=== PATIENT | female | born 1935 | race Caucasian/White ===

== ENCOUNTER 2021-05-18 13:51 | Outpatient (CLI) | payer MEDICARE | END 2021-05-18 23:59 | disposition home or self-care (01) | LOC: LAB 13:51 | PROVIDERS: ATTEND Specialist | DX: Z01.812 Encounter for preprocedural laboratory examination (principal); Z20.822 Contact with and (suspected) exposure to COVID-19 | CPT/HCPCS: C9803; U0003 ==

== ENCOUNTER 2021-05-22 14:30 | Inpatient (IN) | payer MEDICARE, BC ==
[~2021-05-22] VITALS: Ht 152.4 cm; Wt 65.3 kg
[2021-05-22 20:00] VITALS: BP 140/68
--- NOTE | 2021-05-23 07:42 | NUR ---
WOUND CARE CONSULT: PT PRESENTS WITH HEALED SKIN TEARS TO RT ARM AND ELBOW, CRUSTED WOUND TO LEFT ELBOW AND REDNESS WITH SWELLING TO RT CHEEK, CHIN AND NECK AREA, ALL PRESENT ON ADMISSION. DEFER TO MD FOR RT CHEEK/CHIN/NECK. RECOMMENDATIONS MADE FOR LEFT ELBOW WOUND. DISCUSSED WITH NURSING STAFF. MD IN AGREEMENT WITH PLAN OF CARE.
[2021-05-23] MEDS ORDERED: CARB1TAB40 PO (07:53)
[2021-05-23] MEDS ORDERED: DILT180T9 PO (07:53)
[2021-05-23] MEDS ORDERED: IRBE300T19 PO (07:53)
[2021-05-23] MEDS ORDERED: ROSU10TA29 PO (07:53)
[2021-05-23] MEDS ORDERED: DULO60CA64 PO (07:53)
[2021-05-23] MEDS ORDERED: PANT40TA49 PO (07:53)
[2021-05-23] MEDS ORDERED: POLY17PO4 PO (07:53)
[2021-05-23] MEDS ORDERED: CALC-1143 PO (07:53)
[2021-05-23] MEDS ORDERED: POLY15DR40 EACH EAR (07:53)
[2021-05-23] MEDS ORDERED: CARB1TAB21 PO (07:53)
--- NOTE | 2021-05-23 07:53 | NUR ---
MS RN OPENING NOTES RECEIVED PATIENT AWAKE IN BED IN NO ACUTE SIGNS OF DISTRESS. A/O X4. ABLE TO MAKE NEEDS KNOWN, DENIES PAIN OR ANY DISCOMFORTS AT THIS TIME. ON ROOM AIR, BREATHING EVENLY AND NON-LABORED. IV ACCESS ON LAC # 20G INTACT AND PATENT. SAFETY MEASURES IN PLACED: BED IN LOWEST LOCKED POSITION WIT SR UP X2. CALL LIGHT WITHIN REACH. WILL CONTINUE TO MONITOR PT ACCORDINGLY..
[2021-05-23 08:00] VITALS: BP 116/63
[2021-05-23 09:21] LABS: CALCIUM, SERUM 8.9 mg/dL (8.5-10.1); CREATININE 1.2 mg/dL (0.6-1.3); POTASSIUM 4.6 mmol/L (3.5-5.1)
--- NOTE | 2021-05-23 09:51 | NUR ---
RN NOTES PT STATED THAT DR FENTON CAME EARLY THIS MORNING BEFORE SHIFT STARTED. SHE STATED THAT HER SURGERY IS CANCELLED. DR FENTON'S PA DAVIDSON CONFIRMED THAT SURGERY WAS CANCELLED AND PT CAN EAT.
--- NOTE | 2021-05-23 09:55 | NUR ---
RN NOTES RECEIVED CALL FROM MANAGER MEDICAL DEVICE AND ASKED IF PT WILL HAVE CT FACIAL W/O CONTRAST OR WITH CONTRAST. NOTIFIED NERA, BIOMECHANICAL ENGINEER AND ORDERED W/O CONTRAST. WILL INFORM CT.
[2021-05-23] MEDS ORDERED: ACETAMINOPHEN 325 MG TABLET PO PRN (10:00)
[2021-05-23] MEDS ORDERED: MAG HYDROX/AL HYDROX/SIMETH 30 ML UDC PO PRN (10:00)
[2021-05-23] MEDS ORDERED: HYDROCODONE/APAP 5/325MG TABLET PO PRN (10:00)
[2021-05-23] MEDS ORDERED: MAGNESIUM HYDROXIDE 30 ML UDC PO PRN (10:00)
[2021-05-23] MEDS ORDERED: Z GUARD REMEDY 2 OZ OINT TP PRN (10:00)
[2021-05-23] MEDS ORDERED: ONDANSETRON HCL/PF 4 MG/2 ML VIAL IVP PRN (10:00)
[2021-05-23] MEDS ORDERED: POLYVINYL ALCOHOL 15 ML BOTTLE OP PRN (11:00)
--- NOTE | 2021-05-23 11:23 | NUR ---
RN NOTES PT PICKED-UP VIA WHEELCHAIR BY [facility] FOR CT OF FACE W//O CONTRAST.
[2021-05-23] MEDS: CARBIDOPA/LEVODOPA 25/100 MG 1 UDTAB PO SCH ×2 (12:15→16:52)
--- NOTE | 2021-05-23 17:56 | NUR ---
RN DISCHARGED NOTES PATIENT DISCHARGED HOME IN STABLE CONDITION. A/O X4. ABLE TO MAKE NEEDS KNOWN. V/S TAKEN, STABLE AND RECORDED. ALL BELONGINGS CHECKED, COUNTED AND SIGNED FORM. IV ACCESS ON LAC#20G REMOVED WITH NO ACTIVE BLEEDING NOTED, DRY PRESSURE DRESSING APPLIED TO SITE. NAME ARMBAND REMOVED. HEALTH TEACHINGS/ DISCHARGE INSTRUCTIONS GIVEN TO PT AND VERBALIZED UNDERSTANDING. PT LEFT UNIT AT 1745 VIA WHEELCHAIR ACCOMPANIED BY TK VERAS. NIELS IN THE CAR OUTSIDE OF THE LOBBY AND WILL TAKE PT'S HOME. CHARGE NURSE AWARE OF DISCHARGE.
[2021-05-23] MEDS ORDERED: CALCIUM CARBONATE (1250) 500 MG TABLET PO SCH (18:00)
[2021-05-23] MEDS ORDERED: POLYETHYLENE GLYCOL 3350 17 GM POWD.PACK PO SCH (18:00)
[2021-05-23] MEDS ORDERED: DILTIAZEM HCL CD 180 MG PO SCH (21:00)
[2021-05-23] MEDS ORDERED: CARBIDOPA/LEV CR 50/200 MG 1 UDTAB.SA PO SCH (22:00)
[2021-05-24] MEDS ORDERED: PANTOPRAZOLE 40 MG TABLET.DR PO SCH (07:30)
[2021-05-24] MEDS ORDERED: DILTIAZEM HCL CD 180 MG PO SCH (09:00)
[2021-05-24] MEDS ORDERED: ATORVASTATIN 10 MG TABLET PO SCH (09:00)
[2021-05-24] MEDS ORDERED: LOSARTAN POTASSIUM 50 MG TABLET PO SCH (09:00)
[2021-05-24] MEDS ORDERED: DULOXETINE HCL 30 MG CAPSULE.DR PO SCH (09:00)
== END 2021-05-23 17:52 | disposition home or self-care (01) | DRG 603 ==
LOC: MED 18:47 → EDSTATUS 05-23 14:30
PROVIDERS: ADMIT Internal Medicine; ATTEND Internal Medicine
DX: L03.211 Cellulitis of face (principal); E78.5 Hyperlipidemia, unspecified; E86.0 Dehydration; F32.9 Major depressive disorder, single episode, unspecified; G20 Parkinson's disease; I10 Essential (primary) hypertension; Z88.2 Allergy status to sulfonamides; I87.8 Other specified disorders of veins; M16.11 Unilateral primary osteoarthritis, right hip
CPT/HCPCS: 36415; 70486-TC; 80048-TC; 86140-TC; 87081-TC; 93307-TC; 93971-TC; A6253; G0378

== ENCOUNTER 2021-05-28 07:09 | Outpatient (CLI) | payer MEDICARE, BC ==
[~2021-05-28 07:09] MED LIST: CALC-1143 PO; CARB1TAB21 PO; CARB1TAB40 PO; DILT180T9 PO; DULO60CA64 PO; IRBE300T19 PO; PANT40TA49 PO; POLY15DR40 EACH EAR; POLY17PO4 PO; ROSU10TA29 PO
== END 2021-05-28 23:59 | disposition home or self-care (01) ==
LOC: LAB 07:09
PROVIDERS: ATTEND Specialist
DX: Z01.812 Encounter for preprocedural laboratory examination (principal); Z20.822 Contact with and (suspected) exposure to COVID-19
CPT/HCPCS: C9803; U0003

== ENCOUNTER 2021-06-01 08:20 | Inpatient (IN) | payer MEDICARE, BC ==
[~2021-06-01] VITALS: Ht 152.4 cm; Wt 61.7 kg
[2021-06-01] VITALS (8 sets, daily range): BP systolic 108–175; BP diastolic 51–75
[2021-06-01] MEDS ORDERED: ANESTHESIA TRAY IN PYXIS 1 EA TRAY MC ONE (08:36)
[2021-06-01] MEDS ORDERED: POLYMYXIN B SULFATE 0 UNITS ONE (08:41)
[2021-06-01] MEDS ORDERED: BUPIVACAINE 0.5 % PF 150 MG/30 ML VIAL ONE (08:41)
--- NOTE | 2021-06-01 08:50 | NUR ---
MS DIE ENGRAVING SUPERVISOR NOTES RECEIVED PATIENT FROM HOME VIA WHEELCHAIR, AWAKE AND A/O X4. FOR SURGERY IN AM- RIGHT TOTAL HIP ARTHROPLASTY. MADE COMFORTABLE ON BED. ASSESSMENT DONE. SKIN ASSESSMENT DONE, PHOTOS TAKEN. ALLERGIES NOTED. CONSENT FOR SURGERY, ANESTHESIA AND BLOOD TRANSFUSION HAVE BEEN SIGNED BY THE PATIENT. SURGERY CHECKLIST DONE. VITAL SIGNS CHECKED. ON NPO SINCE MIDNIGHT. SAFETY MEASURES IN PLACE. CALL LIGHT WITHIN REACH. BED ON LOWEST AND LOCKED POSITION, SIDE RAILS UP X2. WILL CONTINUE TO MONITOR.
[2021-06-01] MEDS ORDERED: TRANEXAMIC ACID 3,000 MG in SODIUM CHLORIDE IRRIG SOLUTION 70 ML IR ONE (10:30)
--- NOTE | 2021-06-01 10:30 | NUR ---
MS RN NOTES PATIENT WAS PICKED UP BY THE SURGERY PERSONNEL FOR RIGHT TOTAL HIP ARTHROPLASTY. PATIENT'S [place]EDD[place] RING WAS TAPED ON RING FINGER. SURGERY CHECKLIST DONE. CONSENT FORMS FOR SURGERY SIGNED.
[2021-06-01] MEDS ORDERED: FENTANYL PF 250MCG/5ML AMPUL ONE (11:09)
[2021-06-01] MEDS ORDERED: ROCURONIUM BROMIDE 50 MG/5 ML ONE (11:09)
[2021-06-01] MEDS ORDERED: ONDANSETRON HCL/PF 4 MG/2 ML VIAL IV PRN (11:30)
[2021-06-01] MEDS ORDERED: MAG HYDROX/AL HYDROX/SIMETH 30 ML UDC PO PRN (11:30)
[2021-06-01] MEDS ORDERED: CLONIDINE HCL 0.1 MG TABLET PO PRN (11:30)
[2021-06-01] MEDS ORDERED: HYDROMORPHONE 1 MG/1 ML DISP.SYRIN IM/IV/SC PRN (11:30)
[2021-06-01] MEDS ORDERED: ALPRAZOLAM 0.25 MG TABLET PO PRN (11:30)
[2021-06-01] MEDS ORDERED: MENTHOL/CETYLPYRD (CEPACOL) 1 LOZ LOZENGE PO PRN (11:30)
[2021-06-01] MEDS ORDERED: BISACODYL SUPP (10 MG) 10 MG/SUPP.RECT SUPP.RECT RC PRN (14:00)
[2021-06-01] MEDS ORDERED: ACETAMINOPHEN 325 MG TABLET PO PRN (14:00)
[2021-06-01] MEDS ORDERED: DOCUSATE SODIUM 250 MG CAPSULE PO PRN (14:00)
[2021-06-01] MEDS ORDERED: SENNOSIDES 8.6 MG TABLET PO PRN (14:00)
--- NOTE | 2021-06-01 14:30 | NUR ---
MS RN NOTES RECEIVED PATIENT FROM OR ENDORSED BY MS LANCE. PATIENT IS AWAKE AND A/OX4. WITH ABDUCTION PILLOW. WITH LONG CATHETER DRAINING 125ML. WITH IV ACCESS AT RIGHT HAND G22 WITH IVF LR AT 100ML/HR. ON REGULAR DIET. MRSA SWAB DONE. WILL CONTINUE TO MONITOR.
[2021-06-01] MEDS: oxyCODONE IR immediate release 5 MG PO PRN (15:35)
[2021-06-01] MEDS: IV LR 1000 ML 1,000 ML IV PRN (15:42)
[2021-06-01] MEDS: DULOXETINE HCL 30 MG CAPSULE.DR PO SCH (17:08)
--- NOTE | 2021-06-01 18:43 | NUR ---
MS RN NOTES PATIENT ON BED RESTING AND A/O X4. ON O2 AT 2LPM VIA NASAL CANNULA TOLERATING WELL. NO SOB NOTED. NOT IN APPARENT DISTRESS. WITH ABDUCTION PILLOW. WITH LONG CATHETER DRAINING 125ML. WITH IV ACCESS AT RIGHT HAND G22 WITH IVF LR AT 100ML/HR. SAFETY MEASURES IN PLACE. CALL LIGHT WITHIN REACH. BED ON LOWEST AND LOCKED POSITION, SIDE RAILS UP X2. WILL ENDORSE TO NEXT SHIFT FOR FAUSTO.
--- NOTE | 2021-06-01 19:59 | NUR ---
MS RN OPENING NOTE PT A/OX4 ABLE TO MAKE NEEDS KNOWN; IN ROOM. TOLERATING R/A WELL WITH NO SOB. R HAND #22G LR @ 100ML/HR. DENIES PAIN OR DISCOMFORT AT THIS TIME. DRESSING TO R HIP KEPT C/D/I. ALL NEEDS MET. SAFETY MEASURES IN PLACE: BED IN LOWEST LOCKED POSITION; SIDE RAILS UPX2, CALL LIGHT WITHIN EASY REACH, BED ALARM ON. PATIENT IN STABLE CONDITION, WILL CONTINUE PLAN OF CARE.
[2021-06-01] MEDS: ANCEF 1 GM/50 ML D5W IV SCH (20:22)
[2021-06-01] MEDS: PANTOPRAZOLE 40 MG TABLET.DR PO SCH (22:02)
--- NOTE | 2021-06-01 22:35 | NUR ---
MS RN NOTE R HAND #22G DISLODGED. REINSERTED L HAND #22G; GOOD BLOOD RETURN; PATENT AND INTACT
[2021-06-01] MEDS: diphenhydrAMINE HCL 25 MG CAPSULE PO PRN (23:31)
--- NOTE | 2021-06-01 23:41 | NUR ---
MS RN NOTE PT NOTED WITH AGITATION AND DIFFICULTY SLEEPING. OFFERED BENADRYL BUT PT STRONGLY REFUSED "I WILL STAY UP ALL NIGHT IF I HAVE TO." WILL CONTINUE TO MONITOR PT FOR AGITATION.
--- NOTE | 2021-06-01 23:45 | NUR ---
MS RN NOTE UPDATED GODREE PT'S ON PT'S STATUS OF AGITATION AND CONFUSION. ERIC CHARGE NURSE AWARE
--- NOTE | 2021-06-02 03:31 | NUR ---
MS RN NOTE - ADMITTING ORDERS NOTIFIED ERIC CHARGE NURSE PT DOES NOT HAVE ADMITTING OR CODE STATUS ORDERS. CHARGE NURSE NOTIFIED JERICHO CHOWDHURY AT 0331 VIA TEXT. AWAITING ORDERS
[2021-06-02] MEDS ORDERED: ONDANSETRON HCL/PF 4 MG/2 ML VIAL IVP PRN (04:00)
[2021-06-02] MEDS ORDERED: SENNOSIDES 8.6 MG TABLET PO PRN (04:00)
[2021-06-02] MEDS ORDERED: DOCUSATE SODIUM 250 MG CAPSULE PO PRN (04:00)
[2021-06-02] MEDS: IV LR 1000 ML 1,000 ML IV PRN ×2 (04:40→19:26)
[2021-06-02] MEDS: ANCEF 1 GM/50 ML D5W IV SCH (04:41)
--- NOTE | 2021-06-02 06:04 | NUR ---
MS RN OPENING NOTE PT A/OX3 WITH SOME CONFUSION; ABLE TO MAKE NEEDS KNOWN; IN ROOM. TOLERATING R/A WELL WITH NO SOB. L HAND #22G LR @ 100ML/HR; PATENT AND INTACT. DENIES PAIN OR DISCOMFORT AT THIS TIME. DRESSING TO R HIP KEPT C/D/I. ALL NEEDS MET. SAFETY MEASURES IN PLACE: BED IN LOWEST LOCKED POSITION; SIDE RAILS UPX2, CALL LIGHT WITHIN EASY REACH, BED ALARM ON. PATIENT IN STABLE CONDITION, WILL ENDORSE PLAN OF CARE TO ONCOMING MORNING RN.
[2021-06-02 06:26] LABS: HEMOGLOBIN 10.1 g/dL (11.5-14.8)
[2021-06-02 06:29] LABS: BASOPHILS % (AUTO) 0.1 % (0.0-2.0); HEMATOCRIT 30 % (33-45); LYMPHOCYTES # (AUTO) 0.4 K/uL (0.8-4.8); LYMPHOCYTES % (AUTO) 3.2 % (20.0-44.0); MEAN CORPUSCULAR HGB CONC 33 g/dl (31.0-36.0); MEAN CORPUSCULAR VOLUME 91 fL (82-100); MONOCYTES # (AUTO) 0.5 K/uL (0.1-1.30); MONOCYTES % (AUTO) 3.7 % (2.0-12.0); NEUTROPHILS # (AUTO) 12.6 K/uL (1.8-8.9); PLATELET COUNT (AUTO) 307 K/uL (150-450); RED BLOOD CELL COUNT(AUTO) 3.31 MIL/uL (4.0-5.2); WHITE BLOOD COUNT (AUTO) 13.5 K/uL (4.3-11.0)
[2021-06-02 06:59] LABS: BILIRUBIN,TOTAL 0.3 mg/dL (0.2-1.0); CALCIUM, SERUM 8.2 mg/dL (8.5-10.1); CREATININE 1.1 mg/dL (0.6-1.3); MAGNESIUM 2.5 mg/dL (1.8-2.4); PHOSPHORUS 3.6 mg/dL (2.5-4.9); POTASSIUM 4.9 mmol/L (3.5-5.1); TOTAL PROTEIN, SERUM 6.2 g/dL (6.4-8.2)
[2021-06-02 07:26] LABS: THYROID STIMULATING HORMONE 0.263 uIU/mL (0.358-3.74)
--- NOTE | 2021-06-02 07:30 | NUR ---
MS RN OPENING NOTES RECEIVED PATIENT ON BED, RESTING AND A/O X4. ON O2 AT 2LPM VIA NASAL CANNULA- ON AND OFF. NO SOB NOTED. NOT IN DISTRESS. WITH NO COMPLAINTS OF PAIN AT THIS TIME. WITH IV ACCESS AT RIGHT FOREARM G22, INTACT AND PATENT WITH IVF LR AT 50ML/HR. SAFETY MEASURES IN PLACE. CALL LIGHT WITHIN REACH. BED ON LOWEST AND LOCKED POSITION, SIDE RAILS UP X2. WILL CONTINUE TO MONITOR.
[2021-06-02 08:00] VITALS: BP 165/80
[2021-06-02] MEDS: ASPIRIN 325 MG TABLET PO SCH (09:37)
[2021-06-02] MEDS: DULOXETINE HCL 30 MG CAPSULE.DR PO SCH ×2 (09:37→17:31)
[2021-06-02] MEDS: DOCUSATE SODIUM 100 MG CAPSULE PO SCH ×2 (09:37→17:31)
[2021-06-02] MEDS ORDERED: POLYVINYL ALCOHOL 15 ML BOTTLE EACHEYE PRN (10:00)
[2021-06-02] MEDS: DILTIAZEM HCL CD 180 MG PO SCH (10:29)
[2021-06-02] MEDS: LOSARTAN POTASSIUM 50 MG TABLET PO SCH (10:29)
[2021-06-02] MEDS: CARBIDOPA/LEVODOPA 25/100 MG 1 UDTAB PO SCH ×3 (13:35→20:28)
[2021-06-02 16:07] VITALS: BP 145/59
[2021-06-02] MEDS: CALCIUM CARBONATE 500 MG TAB.CHEW PO SCH (19:06)
[2021-06-02] MEDS: POLYETHYLENE GLYCOL 3350 17 GM POWD.PACK PO SCH (19:06)
--- NOTE | 2021-06-02 19:36 | NUR ---
MS RN CLOSING NOTES PATIENT ON BED, RESTING AND A/O X4. ON O2 AT 2LPM VIA NASAL CANNULA- ON AND OFF. NO SOB NOTED. NOT IN DISTRESS. WITH NO COMPLAINTS OF PAIN AT THIS TIME. WITH IV ACCESS AT RIGHT HAND G20, INTACT AND PATENT WITH IVF LR AT 50ML/HR. SAFETY MEASURES IN PLACE. CALL LIGHT WITHIN REACH. BED ON LOWEST AND LOCKED POSITION, SIDE RAILS UP X2. WILL ENDORSE TO NEXT SHIFT FOR FAUSTO.
[2021-06-02 19:54] VITALS: BP 132/52
--- NOTE | 2021-06-02 20:51 | NUR ---
MS RN OPENING NOTES RECEIVED PT IN BED, WATCHING TV. AOx4. ABLE TO MAKE NEEDS KNOWN. ON RA AND TOLERATING WELL. NO SOB NOTED. NO S/SX OF RESPIRATORY DISTRESS NOTED. IV ACCESS IN RIGHT FA #22 RUNNING LR @ 50 ML/HR. NO COMPLAINTS OF PAIN AT THIS TIME. SAFETY PRECAUTIONS IN PLACE: BED IN LOWEST, LOCKED POSITION, BRAKES ON, SIDERAILS UPx2. TABLE AND CALL LIGHT WITHIN REACH. WILL CONTINUE TO MONITOR.
[2021-06-02] MEDS: CARBIDOPA/LEV CR 50/200 MG 1 UDTAB.SA PO SCH (22:09)
[2021-06-02] MEDS: PANTOPRAZOLE 40 MG TABLET.DR PO SCH (22:10)
[2021-06-02] MEDS: oxyCODONE IR immediate release 5 MG PO PRN (22:22)
--- NOTE | 2021-06-02 22:22 | NUR ---
ADMINISTERED OXYCODONE FOR PAIN, PER MD ORDER. VS WNL. WILL CONTINUE TO MONITOR.
--- NOTE | 2021-06-03 05:48 | NUR ---
PT REFUSED BLOOD DRAW. LAB PERSONNEL WILL ATTEMPT AT A LATER TIME.
--- NOTE | 2021-06-03 06:40 | NUR ---
MS RN CLOSING NOTES PT IN BED, SLEEPING, AWAKENS TO VERBAL STIMULI. AOx3-4. ABLE TO MAKE NEEDS KNOWN. ON RA AND TOLERATING WELL. NO SOB NOTED. NO S/SX OF RESPIRATORY DISTRESS NOTED. IV ACCESS IN RIGHT FA #22 RUNNING LR @ 50 ML/HR. TREATED PAIN ONCE DURING SHIFT. ALL NEEDS MET. PT KEPT CLEAN AND DRY. WOUND DRESSING ON RIGHT HIP IS DRY AND INTACT. SAFETY PRECAUTIONS IN PLACE: BED IN LOWEST, LOCKED POSITION, BRAKES ON, SIDERAILS UPx2. TABLE AND CALL LIGHT WITHIN REACH. WILL ENDORSE TO ONCOMING SHIFT.
--- NOTE | 2021-06-03 07:26 | NUR ---
MS RN OPENING NOTES RECEIVED PT IN BED RESTING. AWAKENS TO VERBAL STIMULI. PATIENT IS AOx4. ABLE TO MAKE NEEDS KNOWN. PATIENT IS BREATHING EVENLY AND NONLABORED ON RA AND TOLERATING WELL. NO SOB NOTED. NO S/SX OF RESPIRATORY DISTRESS NOTED. IV ACCESS IN RIGHT FA #22 RUNNING LR @ 50 ML/HR. NO COMPLAINTS OF PAIN AT THIS TIME. SAFETY PRECAUTIONS IN PLACE: BED IN LOWEST, LOCKED POSITION, BRAKES ON, SIDERAILS UPx2. TABLE AND CALL LIGHT WITHIN REACH. WILL CONTINUE TO MONITOR.
[2021-06-03] MEDS ORDERED: PANTOPRAZOLE 40 MG TABLET.DR PO SCH (07:30)
[2021-06-03 08:00] VITALS: BP 142/52
[2021-06-03] MEDS: ASPIRIN 325 MG TABLET PO SCH (08:18)
[2021-06-03] MEDS: CARBIDOPA/LEVODOPA 25/100 MG 1 UDTAB PO SCH ×4 (08:19→20:15)
[2021-06-03] MEDS: DOCUSATE SODIUM 100 MG CAPSULE PO SCH ×2 (08:19→16:08)
[2021-06-03] MEDS: ATORVASTATIN 10 MG TABLET PO SCH (08:19)
[2021-06-03] MEDS: LOSARTAN POTASSIUM 50 MG TABLET PO SCH (08:19)
[2021-06-03] MEDS: DULOXETINE HCL 30 MG CAPSULE.DR PO SCH ×2 (08:19→16:08)
[2021-06-03] MEDS: DILTIAZEM HCL CD 180 MG PO SCH (08:20)
[2021-06-03] MEDS ORDERED: LOSARTAN POTASSIUM 50 MG TABLET PO SCH (09:00)
[2021-06-03] MEDS ORDERED: DULOXETINE HCL 30 MG CAPSULE.DR PO SCH (09:00)
[2021-06-03 09:09] LABS: BASOPHILS % (AUTO) 0.1 % (0.0-2.0); HEMATOCRIT 29 % (33-45); HEMOGLOBIN 9.5 g/dL (11.5-14.8); LYMPHOCYTES # (AUTO) 0.9 K/uL (0.8-4.8); LYMPHOCYTES % (AUTO) 7.2 % (20.0-44.0); MEAN CORPUSCULAR HGB CONC 33 g/dl (31.0-36.0); MEAN CORPUSCULAR VOLUME 92 fL (82-100); MONOCYTES # (AUTO) 0.8 K/uL (0.1-1.30); NEUTROPHILS # (AUTO) 10.1 K/uL (1.8-8.9); NEUTROPHILS % (AUTO) 84.7 % (43.0-81.0); PLATELET COUNT (AUTO) 284 K/uL (150-450); RED BLOOD CELL COUNT(AUTO) 3.13 MIL/uL (4.0-5.2); WHITE BLOOD COUNT (AUTO) 11.9 K/uL (4.3-11.0)
[2021-06-03 09:52] LABS: CALCIUM, SERUM 8.3 mg/dL (8.5-10.1); CREATININE 1.2 mg/dL (0.6-1.3); POTASSIUM 3.9 mmol/L (3.5-5.1)
[2021-06-03 16:00] VITALS: BP 143/57
[2021-06-03] MEDS: CALCIUM CARBONATE 500 MG TAB.CHEW PO SCH (17:09)
[2021-06-03] MEDS: POLYETHYLENE GLYCOL 3350 17 GM POWD.PACK PO SCH (17:09)
--- NOTE | 2021-06-03 18:18 | NUR ---
MS RN CLOSING NOTES PT IN BED RESTING. AWAKENS TO VERBAL STIMULI. PATIENT IS AOx4. ABLE TO MAKE NEEDS KNOWN. PATIENT IS BREATHING EVENLY AND NONLABORED ON RA AND TOLERATING WELL. NO SOB NOTED. NO S/SX OF RESPIRATORY DISTRESS NOTED. IV ACCESS IN RIGHT FA #22 PATENT AND INTACT. ALL MEDICATIONS GIVEN ORDERED NO COMPLAINTS OF PAIN AT THIS TIME. SAFETY PRECAUTIONS IN PLACE: BED IN LOWEST, LOCKED POSITION, BRAKES ON, SIDERAILS UPx2. TABLE AND CALL LIGHT WITHIN REACH. WILL
--- NOTE | 2021-06-03 19:40 | NUR ---
MS RN OPENING NOTES RECEIVED PT IN BED, WATCHING TV. AOx3-4. ABLE TO MAKE NEEDS KNOWN. ON RA AND TOLERATING WELL. NO SOB NOTED. NO S/SX OF RESPIRATORY DISTRESS NOTED. IV ACCESS IN RIGHT FA #22 RUNNING LR @ 50 ML/HR. NO COMPLAINTS OF PAIN AT THIS TIME. SAFETY PRECAUTIONS IN PLACE: BED IN LOWEST, LOCKED POSITION, BRAKES ON, SIDERAILS UPx2. TABLE AND CALL LIGHT WITHIN REACH. WILL CONTINUE TO MONITOR. Addendum: 06/04/21 at 0644 by JAMES VALLE RN IV ACCESS IN R FA#[id number]. IV IS INTACT, PATENT AND FLUSHING WELL.
[2021-06-03 20:31] VITALS: BP 133/58
[2021-06-03] MEDS: PANTOPRAZOLE 40 MG TABLET.DR PO SCH (21:25)
[2021-06-03] MEDS: CARBIDOPA/LEV CR 50/200 MG 1 UDTAB.SA PO SCH (21:26)
--- NOTE | 2021-06-04 06:43 | NUR ---
MS RN CLOSING NOTES PT IN BED, ASLEEP, AWAKENS TO VERBAL STIMULI. AOx3-4. ABLE TO MAKE NEEDS KNOWN. ON RA AND TOLERATING WELL. NO SOB NOTED. NO S/SX OF RESPIRATORY DISTRESS NOTED. IV ACCESS IN RIGHT FA #22 RUNNING LR @ 50 ML/HR. NO COMPLAINTS OF PAIN THROUGHOUT SHIFT. ALL NEEDS MET. PT KEPT CLEAN AND DRY. SAFETY PRECAUTIONS IN PLACE: BED IN LOWEST, LOCKED POSITION, BRAKES ON, SIDERAILS UPx2. TABLE AND CALL LIGHT WITHIN REACH. WILL ENDORSE TO ONCOMING SHIFT. Addendum: 06/04/21 at 0644 by JAMES VALLE RN IV ACCESS IN R FA#[id number]. IV IS INTACT, PATENT AND FLUSHING WELL.
--- NOTE | 2021-06-04 07:30 | NUR ---
MS RN OPENING NOTE RECEIVED PT AWAKE IN BED. A/O X3-4. PT IS STABLE ON ROOM AIR, TOLERATING WELL. NO SOB OR S/S OF RESPIRATORY DISTRESS NOTED. PT HAS NO C/O PAIN OR DISCOMFORT AT THIS TIME. IV ACCESS IN RFA #22 SALINE-LOCKED, INTACT AND PATENT. LONG CATH IN PLACE DRAINING CLEAR, YELLOW URINE. SAFETY PRECAUTIONS MAINTAINED. BED IN LOWEST LOCKED POSITION, HOB ELEVATED, SIDE RAILS UP X2. CALL LIGHT AND TABLE WITHIN REACH. WILL CONTINUE WITH PLAN OF CARE.
[2021-06-04 08:00] VITALS: BP 141/61
[2021-06-04] MEDS: DULOXETINE HCL 30 MG CAPSULE.DR PO SCH ×2 (08:37→16:33)
[2021-06-04] MEDS: CARBIDOPA/LEVODOPA 25/100 MG 1 UDTAB PO SCH ×4 (08:38→20:17)
[2021-06-04] MEDS: ATORVASTATIN 10 MG TABLET PO SCH (08:38)
[2021-06-04] MEDS: ASPIRIN 325 MG TABLET PO SCH (08:38)
[2021-06-04] MEDS: DOCUSATE SODIUM 100 MG CAPSULE PO SCH ×2 (08:38→16:33)
[2021-06-04] MEDS: LOSARTAN POTASSIUM 50 MG TABLET PO SCH (08:38)
[2021-06-04] MEDS: DILTIAZEM HCL CD 180 MG PO SCH (08:39)
[2021-06-04 16:00] VITALS: BP 121/52
[2021-06-04] MEDS ORDERED: IV NS 0.9% 500 ML IV ONE (17:00)
[2021-06-04] MEDS: POLYETHYLENE GLYCOL 3350 17 GM POWD.PACK PO SCH (17:09)
[2021-06-04] MEDS: CALCIUM CARBONATE 500 MG TAB.CHEW PO SCH (17:09)
--- NOTE | 2021-06-04 18:18 | NUR ---
RN NOTE PT APPEARED VERY AGITATED, CONFUSED, AND ATTEMPTED TO GET OUT OF BED. PT STATED "I WANT TO REMOVE MY WEDGE PILLOW AND GET UP." INFORMED SYSTEM DEVELOPMENT MANAGER ANNIA AND RECEIVED ORDERS FOR ATIVAN 1MG IV ONE TIME, SEROQUEL 12.5MG PO BID, AND PSYCH CONSULT. ORDERS READ BACK, ENTERED, AND CARRIED OUT. WILL CONTINUE TO MONITOR PT CLOSELY.
--- NOTE | 2021-06-04 18:21 | NUR ---
MS RN CLOSING NOTE PT IS AWAKE IN BED. A/O X2 WITH PERIODS OF CONFUSION. PT IS STABLE ON ROOM AIR, TOLERATING WELL. NO SOB OR S/S OF RESPIRATORY DISTRESS NOTED. PT HAS NO C/O PAIN OR DISCOMFORT AT THIS TIME. IV ACCESS IN RFA #22 SALINE-LOCKED, INTACT AND PATENT. LONG CATH IN PLACE DRAINING CLEAR, YELLOW URINE. ALL NEEDS HAVE BEEN MET. SAFETY PRECAUTIONS MAINTAINED AT ALL TIMES. BED IN LOWEST LOCKED POSITION, HOB ELEVATED, SIDE RAILS UP X2. CALL LIGHT AND TABLE WITHIN REACH. WILL ENDORSE TO ONCOMING NURSE FOR FAUSTO.
[2021-06-04] MEDS ORDERED: LORAZEPAM INJ 2 MG/ML VIAL IV ONE (18:30)
--- NOTE | 2021-06-04 19:45 | NUR ---
MS RN OPENING NOTES Patient is sleeping but easy to wake. A&Ox2. RFA #22G patent and flushed. Weight bearing as tolerated to RLE. Brown catheter draining clear yellow urine. Patient denies pain at this time. No signs of distress. Will continue to monitor.
[2021-06-04 20:00] VITALS: BP 151/64
[2021-06-04] MEDS: PANTOPRAZOLE 40 MG TABLET.DR PO SCH (22:02)
[2021-06-04] MEDS: CARBIDOPA/LEV CR 50/200 MG 1 UDTAB.SA PO SCH (22:03)
[2021-06-05] MEDS: diphenhydrAMINE HCL 25 MG CAPSULE PO PRN (00:22)
--- NOTE | 2021-06-05 06:25 | NUR ---
Patient A&Ox1 at bedtime, ing behaviors. Thinks it is lunchtime and that later she has a special constitution party to go to with her family. Reoriented patient that she is in the hospital and it is nighttime. Accepted reality well. Had x2 BMs using bedpan after suppository was administered -WNL. In bed with abduction pillow. Denies pain at rest. No clinical indicators of pain at night./ 600cc output to abel cath- clear and yellow. All safety measures in place.
--- NOTE | 2021-06-05 07:39 | NUR ---
RN OPENING NOTES Patient seen comfortably lying in bed, no SOB, respirations even and unlabored, no apparent distress noted, denies any pain or discomfort at this time. Call light left within reach, safety precautions in place, brakes locked, side rails up X 2, will monitor closely for any changes.
[2021-06-05 08:00] VITALS: BP 192/67
[2021-06-05] MEDS ORDERED: QUETIAPINE FUMARATE 25 MG TABLET PO SCH (09:00)
[2021-06-05] MEDS: CARBIDOPA/LEVODOPA 25/100 MG 1 UDTAB PO SCH ×2 (10:13→13:03)
[2021-06-05] MEDS: DILTIAZEM HCL CD 180 MG PO SCH (10:13)
[2021-06-05] MEDS: DULOXETINE HCL 30 MG CAPSULE.DR PO SCH (10:13)
[2021-06-05] MEDS: ASPIRIN 325 MG TABLET PO SCH (10:14)
[2021-06-05] MEDS: LOSARTAN POTASSIUM 50 MG TABLET PO SCH (10:14)
[2021-06-05] MEDS: DOCUSATE SODIUM 100 MG CAPSULE PO SCH (10:14)
[2021-06-05] MEDS: ATORVASTATIN 10 MG TABLET PO SCH (10:14)
--- NOTE | 2021-06-05 15:40 | NUR ---
[facility], report given to Alia FREY [phone]. Patient comfortably lying in bed, no apparent distress noted, denies any pain or discomfort. Patient made aware of the situation, patient AO X 1-2, unable to sign for herself, 2 RNs signed all discharge paperworks, all belongings taken, inventory list signed by 2RNs. Health teaching provided, verbalized understanding and gratitude. Skin intact, warm to touch, no pallor or cyanosis noted. She has discolorations and scabs on upper and lower extremities, photos taken and filed in chart. Patient had a abel catheter s/t surgical procedure, draining clear yellowish urine, free from any sediments, no cloudiness, no hematuria, no unusual odor noted in urine, abel catheter removed prior to discharge. Patient able to void, after abel catheter removal, denies any pain or discomfort in the bladder area, no bladder distention. Peripheral IV removed and covered with dry dressing. Name wristband removed prior to discharge. Patient left unit at 1540, stable condition, surgical facial mask and exit care folder with paperworks handed to transportation.
[2021-06-05 15:52] VITALS: BP 126/50
== END 2021-06-05 15:45 | DRG 470 ==
LOC: DS 08:20 → MED 08:21
PROVIDERS: ADMIT Nurse Practitioner Acute Care
PROC: 0SR90JZ Replacement of Right Hip Joint with Synthetic Substitute, Open Approach (ICD-10-PCS; principal; 2021-06-01)
DX: M16.11 Unilateral primary osteoarthritis, right hip (principal); E87.1 Hypo-osmolality and hyponatremia; I10 Essential (primary) hypertension; G20 Parkinson's disease; D63.8 Anemia in other chronic diseases classified elsewhere; E78.5 Hyperlipidemia, unspecified; E86.1 Hypovolemia; D72.829 Elevated white blood cell count, unspecified; E03.9 Hypothyroidism, unspecified; F32.A Depression, unspecified; G47.00 Insomnia, unspecified; Z90.710 Acquired absence of both cervix and uterus; F41.9 Anxiety disorder, unspecified; K59.09 Other constipation; F03.90 Unspecified dementia, unspecified severity, without behavioral disturbance, psychotic disturbance, mood disturbance, and anxiety; Z88.9 Allergy status to unspecified drugs, medicaments and biological substances; M48.061 Spinal stenosis, lumbar region without neurogenic claudication; Z88.2 Allergy status to sulfonamides; Z91.81 History of falling
CPT/HCPCS: 36415; 73610-TC; 80048-TC; 80053-TC; 80061-TC; 83735-TC; 84100-TC; 84443-TC; 85025-TC; 85027-TC; 87081-TC; 88305-TC; 88311-TC; 97110-TC; 97112-TC; 97116-TC; 97530-TC; A4217; A6209; C1776; G0378; J0690; J1100; J1170; J2060; J2405; J2704; J3010; J3490; J7030; J7040; J7060; J7120; Q0163

== ENCOUNTER 2022-01-16 11:45 | Outpatient (CLI) | payer MEDICARE, BC ==
[2022-01-16] MEDS ORDERED: LIDOCAINE SOLN 4% 50 ML BOTTLE ONE (12:03)
== END 2022-01-16 23:59 | disposition home health service (06) ==
LOC: WOU 11:45
PROVIDERS: ATTEND Specialist
DX: S81.811D Laceration without foreign body, right lower leg, subsequent encounter (principal); S51.811D Laceration without foreign body of right forearm, subsequent encounter; W19.XXXD Unspecified fall, subsequent encounter; G20 Parkinson's disease; Z79.899 Other long term (current) drug therapy
CPT/HCPCS: 73090; 73562; A6209; G0463

== ENCOUNTER 2022-01-23 10:00 | Outpatient (CLI) | payer MEDICARE, BC ==
[~2022-01-23 10:00] MED LIST changes: +LIDOCAINE SOLN 4% 50 ML BOTTLE ONE
== END 2022-01-23 23:59 | disposition home health service (06) ==
LOC: WOU 10:00
PROVIDERS: ATTEND Specialist
DX: S81.811D Laceration without foreign body, right lower leg, subsequent encounter (principal); S51.811D Laceration without foreign body of right forearm, subsequent encounter; W19.XXXD Unspecified fall, subsequent encounter; G20 Parkinson's disease; I10 Essential (primary) hypertension; Z87.891 Personal history of nicotine dependence; Z79.899 Other long term (current) drug therapy
CPT/HCPCS: G0463

== ENCOUNTER 2022-01-30 09:40 | Outpatient (CLI) | payer MEDICARE, BC ==
[~2022-01-30 09:40] MED LIST changes: -LIDOCAINE SOLN 4% 50 ML BOTTLE ONE
[2022-01-30] MEDS ORDERED: LIDOCAINE SOLN 4% 50 ML BOTTLE ONE (09:57)
== END 2022-01-30 23:59 | disposition home or self-care (01) ==
LOC: WOU 09:40
PROVIDERS: ATTEND Specialist
DX: S81.811D Laceration without foreign body, right lower leg, subsequent encounter (principal); S51.811D Laceration without foreign body of right forearm, subsequent encounter; W19.XXXD Unspecified fall, subsequent encounter; G20 Parkinson's disease; Z79.899 Other long term (current) drug therapy; Z91.81 History of falling; I10 Essential (primary) hypertension; Z87.891 Personal history of nicotine dependence
CPT/HCPCS: G0463

== ENCOUNTER 2022-02-06 09:10 | Outpatient (CLI) | payer MEDICARE, BC | END 2022-02-06 23:59 | disposition home health service (06) | LOC: WOU 09:10 | PROVIDERS: ATTEND Specialist | DX: S81.811A Laceration without foreign body, right lower leg, initial encounter (principal); S51.811A Laceration without foreign body of right forearm, initial encounter; W19.XXXA Unspecified fall, initial encounter; Y92.89 Other specified places as the place of occurrence of the external cause; G20 Parkinson's disease; I10 Essential (primary) hypertension; Z79.899 Other long term (current) drug therapy; Z87.891 Personal history of nicotine dependence | CPT/HCPCS: 17250 ==

== ENCOUNTER 2022-02-13 13:15 | Outpatient (CLI) | payer MEDICARE, BC ==
[2022-02-13] MEDS ORDERED: LIDOCAINE SOLN 4% 50 ML BOTTLE ONE (13:26)
== END 2022-02-13 23:59 | disposition home health service (06) ==
LOC: WOU 13:15
PROVIDERS: ATTEND Specialist
DX: S81.811A Laceration without foreign body, right lower leg, initial encounter (principal); S51.811A Laceration without foreign body of right forearm, initial encounter; W19.XXXA Unspecified fall, initial encounter; Y92.89 Other specified places as the place of occurrence of the external cause; G20 Parkinson's disease; Z79.899 Other long term (current) drug therapy
CPT/HCPCS: 17250

== ENCOUNTER 2022-02-20 09:50 | Outpatient (CLI) | payer MEDICARE, BC ==
[~2022-02-20 09:50] MED LIST changes: +LIDOCAINE SOLN 4% 50 ML BOTTLE ONE
[2022-02-20] MEDS ORDERED: SILVER SULFADIAZINE CREAM 25 GM TUBE ONE (10:59)
[2022-02-20] MEDS ORDERED: HYDROCORTISONE 1% CREAM 28.35 GM TUBE TP ONE (11:00)
== END 2022-02-20 23:59 | disposition home health service (06) ==
LOC: WOU 09:50
PROVIDERS: ATTEND Specialist
DX: S81.811A Laceration without foreign body, right lower leg, initial encounter (principal); S51.811A Laceration without foreign body of right forearm, initial encounter; G20 Parkinson's disease; I10 Essential (primary) hypertension; R29.6 Repeated falls; Z79.899 Other long term (current) drug therapy
CPT/HCPCS: 17250 ×3; A6209

== ENCOUNTER 2022-02-27 09:45 | Outpatient (CLI) | payer MEDICARE, BC ==
[~2022-02-27 09:45] MED LIST changes: -LIDOCAINE SOLN 4% 50 ML BOTTLE ONE
[2022-02-27] MEDS ORDERED: LIDOCAINE 2% JEL 5 ML TUBE ONE (09:56)
[2022-02-27] MEDS ORDERED: UREA 10% -AHA 4% CREAM 57 GM TUBE ONE (10:08)
== END 2022-02-27 23:59 | disposition home health service (06) ==
LOC: WOU 09:45
PROVIDERS: ATTEND Specialist
DX: S81.811D Laceration without foreign body, right lower leg, subsequent encounter (principal); S51.811D Laceration without foreign body of right forearm, subsequent encounter; W19.XXXD Unspecified fall, subsequent encounter; G20 Parkinson's disease; R29.6 Repeated falls; Z79.899 Other long term (current) drug therapy
CPT/HCPCS: G0463

== ENCOUNTER 2022-03-06 09:50 | Outpatient (CLI) | payer MEDICARE, BC ==
[2022-03-06] MEDS ORDERED: LIDOCAINE SOLN 4% 50 ML BOTTLE ONE (09:52)
== END 2022-03-06 23:59 | disposition home health service (06) ==
LOC: WOU 09:50
PROVIDERS: ATTEND Specialist
DX: S81.811D Laceration without foreign body, right lower leg, subsequent encounter (principal); S51.811D Laceration without foreign body of right forearm, subsequent encounter; W19.XXXD Unspecified fall, subsequent encounter; S51.011A Laceration without foreign body of right elbow, initial encounter; W19.XXXA Unspecified fall, initial encounter; Z91.81 History of falling; Y92.89 Other specified places as the place of occurrence of the external cause; G20 Parkinson's disease; Z79.899 Other long term (current) drug therapy
CPT/HCPCS: G0463; A6209

== ENCOUNTER 2022-03-13 13:00 | Outpatient (CLI) | payer MEDICARE, BC ==
[2022-03-13] MEDS ORDERED: LIDOCAINE SOLN 4% 50 ML BOTTLE ONE (13:23)
[2022-03-13] MEDS ORDERED: UREA 10% -AHA 4% CREAM 57 GM TUBE ONE (14:04)
== END 2022-03-13 23:59 | disposition home health service (06) ==
LOC: WOU 13:00
PROVIDERS: ATTEND Specialist
DX: S81.011D Laceration without foreign body, right knee, subsequent encounter (principal); W19.XXXD Unspecified fall, subsequent encounter; Z91.81 History of falling; G20 Parkinson's disease; I10 Essential (primary) hypertension; Z79.899 Other long term (current) drug therapy
CPT/HCPCS: G0463

== ENCOUNTER 2022-03-27 09:20 | Outpatient (CLI) | payer MEDICARE, BC | END 2022-03-27 23:59 | disposition home health service (06) | LOC: WOU 09:20 | PROVIDERS: ATTEND Specialist | DX: S81.011D Laceration without foreign body, right knee, subsequent encounter (principal); W19.XXXD Unspecified fall, subsequent encounter; G20 Parkinson's disease; I10 Essential (primary) hypertension; R29.6 Repeated falls | CPT/HCPCS: G0463 ==

== ENCOUNTER 2022-10-16 08:41 | Outpatient (CLI) | payer MEDICARE, BC ==
[2022-10-16] MEDS ORDERED: HYDROCORTISONE 1% CREAM 28.35 GM TUBE TP ONE (09:18)
== END 2022-10-16 23:59 | disposition home health service (06) ==
LOC: WOU 08:41
PROVIDERS: ATTEND Specialist
DX: S81.811A Laceration without foreign body, right lower leg, initial encounter (principal); S51.811A Laceration without foreign body of right forearm, initial encounter; W19.XXXA Unspecified fall, initial encounter; Y92.89 Other specified places as the place of occurrence of the external cause; G20 Parkinson's disease; R29.6 Repeated falls; I10 Essential (primary) hypertension; Z79.899 Other long term (current) drug therapy
CPT/HCPCS: G0463; A6209

== ENCOUNTER 2022-10-23 08:56 | Outpatient (CLI) | payer MEDICARE, BC | END 2022-10-23 23:59 | disposition home health service (06) | LOC: WOU 08:56 | PROVIDERS: ATTEND Specialist | DX: S81.811D Laceration without foreign body, right lower leg, subsequent encounter (principal); S81.012D Laceration without foreign body, left knee, subsequent encounter; W19.XXXD Unspecified fall, subsequent encounter; G20 Parkinson's disease; R29.6 Repeated falls; I10 Essential (primary) hypertension; Z79.899 Other long term (current) drug therapy | CPT/HCPCS: G0463; A6209 ==

== ENCOUNTER 2022-10-30 08:49 | Outpatient (CLI) | payer MEDICARE, BC | END 2022-10-30 23:59 | disposition home health service (06) | LOC: WOU 08:49 | PROVIDERS: ATTEND Specialist | DX: S81.811D Laceration without foreign body, right lower leg, subsequent encounter (principal); W19.XXXD Unspecified fall, subsequent encounter; L03.115 Cellulitis of right lower limb; G20 Parkinson's disease; R29.6 Repeated falls; Z79.899 Other long term (current) drug therapy | CPT/HCPCS: 29580; A6454; A6209 ==

== ENCOUNTER 2022-11-13 08:59 | Outpatient (CLI) | payer MEDICARE, BC | END 2022-11-13 23:59 | disposition home health service (06) | LOC: WOU 08:59 | PROVIDERS: ATTEND Specialist | DX: S81.811D Laceration without foreign body, right lower leg, subsequent encounter (principal); W19.XXXD Unspecified fall, subsequent encounter; L03.115 Cellulitis of right lower limb; G20 Parkinson's disease; R29.6 Repeated falls; I10 Essential (primary) hypertension; Z79.899 Other long term (current) drug therapy | CPT/HCPCS: G0463 ==

== ENCOUNTER 2022-11-27 09:19 | Outpatient (CLI) | payer MEDICARE, BC ==
[2022-11-27] MEDS ORDERED: UREA 10% -AHA 4% CREAM 57 GM TUBE ONE (09:28)
== END 2022-11-27 23:59 | disposition home health service (06) ==
LOC: WOU 09:19
PROVIDERS: ATTEND Specialist
DX: S81.811D Laceration without foreign body, right lower leg, subsequent encounter (principal); X58.XXXD Exposure to other specified factors, subsequent encounter; I87.2 Venous insufficiency (chronic) (peripheral); G20 Parkinson's disease; R29.6 Repeated falls; Z79.899 Other long term (current) drug therapy
CPT/HCPCS: G0463; A6209

== ENCOUNTER 2022-12-04 10:07 | Outpatient (CLI) | payer MEDICARE, BC ==
[~2022-12-04 10:07] MED LIST changes: +LIDOCAINE 2% JEL 5 ML TUBE ONE; +UREA 10% -AHA 4% CREAM 57 GM TUBE ONE
== END 2022-12-04 23:59 | disposition home health service (06) ==
LOC: WOU 10:07
PROVIDERS: ATTEND Specialist
DX: I87.2 Venous insufficiency (chronic) (peripheral) (principal); L97.818 Non-pressure chronic ulcer of other part of right lower leg with other specified severity; S81.811A Laceration without foreign body, right lower leg, initial encounter; W19.XXXA Unspecified fall, initial encounter; Z91.81 History of falling; Y92.89 Other specified places as the place of occurrence of the external cause; G20 Parkinson's disease; R29.6 Repeated falls; Z79.899 Other long term (current) drug therapy
CPT/HCPCS: G0463; A6209

== ENCOUNTER 2023-11-05 11:11 | Emergency (ER) | payer MEDICARE, BC ==
[~2023-11-05] VITALS: Ht 160 cm; Wt 57.6 kg
[~2023-11-05 11:11] MED LIST changes: -LIDOCAINE 2% JEL 5 ML TUBE ONE; -UREA 10% -AHA 4% CREAM 57 GM TUBE ONE
[2023-11-05 12:42] LABS: INR 0.97 (0.91-1.10); PROTHROMBIN TIME 10.3 SECS (9.2-11.1)
[2023-11-05 13:12] LABS: CALCIUM, SERUM 9.7 mg/dL (8.5-10.1); CARBON DIOXIDE 28 mmol/L (21-32); CHLORIDE 101 mmol/L (98-107); CREATININE 1.3 mg/dL (0.6-1.3); GLUCOSE 88 mg/dL (74-106); POTASSIUM 4.1 mmol/L (3.5-5.1); SODIUM SERUM 141 mmol/L (136-145); UREA NITROGEN, BLOOD 34 mg/dL (7-18)
[2023-11-05 13:18] LABS: ALANINE AMINOTRANSFERASE 10 U/L (12-78); ALBUMIN 3.5 g/dL (3.4-5.0); ALKALINE PHOSPHATASE 54 U/L (46-116); ASPARTATE AMINOTRANSFERASE 15 U/L (15-37); BILIRUBIN,DIRECT 0.1 mg/dL (0.0-0.2); BILIRUBIN,TOTAL 0.4 mg/dL (0.2-1.0); TOTAL PROTEIN, SERUM 7.6 g/dL (6.4-8.2)
[2023-11-05 13:21] LABS: THYROID STIMULATING HORMONE 2.364 uIU/mL (0.358-3.74)
[2023-11-05 13:37] LABS: BASOPHILS # (AUTO) 0.1 K/uL (0.0-0.2); BASOPHILS % (AUTO) 0.8 % (0.0-2.0); EOSINOPHILS # (AUTO) 0.3 K/uL (0.0-0.7); EOSINOPHILS % (AUTO) 3.2 % (0.0-6.0); HEMATOCRIT 39 % (33-45); HEMOGLOBIN 12.5 g/dL (11.5-14.8); LYMPHOCYTES # (AUTO) 1.1 K/uL (0.8-4.8); LYMPHOCYTES % (AUTO) 12.5 % (20.0-44.0); MEAN CORPUSCULAR HEMOGLOBIN 29 PG (26.0-33.0); MEAN CORPUSCULAR HGB CONC 32 g/dl (31.0-36.0); MEAN CORPUSCULAR VOLUME 90 fL (82-100); MONOCYTES # (AUTO) 0.4 K/uL (0.1-1.30); MONOCYTES % (AUTO) 4.6 % (2.0-12.0); NEUTROPHILS # (AUTO) 6.9 K/uL (1.8-8.9); NEUTROPHILS % (AUTO) 78.9 % (43.0-81.0); PLATELET COUNT (AUTO) 329 K/uL (150-450); RED BLOOD CELL COUNT(AUTO) 4.37 MIL/uL (4.0-5.2); RED CELL DISTRIBUTION WIDTH 15.3 % (11.5-15.0); WHITE BLOOD COUNT (AUTO) 8.8 K/uL (4.3-11.0)
[2023-11-05 15:09] LABS: APPEARANCE,URINE CLEAR (CLEAR); BILIRUBIN,URINE NEGATIVE (NEGATIVE); BLOOD, URINE NEGATIVE Ery/uL (NEGATIVE); COLOR,URINE YELLOW (YELLOW); KETONES,URINE NEGATIVE (NEGATIVE); LEUKOCYTE ESTERASE ,URINE 2+ (NEGATIVE); NITRITE, URINE NEGATIVE (NEGATIVE); PH,URINE 6.5 (5.0-8.0); PROTEIN,URINE NEGATIVE (NEGATIVE); UGLUCOSE NEGATIVE (NEGATIVE); UROBILINOGEN,URINE 0.2 EU/dL (0.2)
[2023-11-05] MEDS ORDERED: ASCO500T21 PO (15:11)
[2023-11-05] MEDS ORDERED: CHOL200059 PO (15:11)
[2023-11-05] MEDS ORDERED: DOCU100T9 PO (15:11)
[2023-11-05] MEDS ORDERED: GABA-532 PO (15:11)
[2023-11-05] MEDS ORDERED: CARB1TAB21 PO (15:11)
[2023-11-05] MEDS ORDERED: POTA-10 PO (15:11)
[2023-11-05] MEDS ORDERED: MIDO2.5T PO (15:11)
[2023-11-05] MEDS ORDERED: OMEG-110 PO (15:11)
[2023-11-05] MEDS ORDERED: DILT300T9 PO (15:11)
[2023-11-05] MEDS ORDERED: FOLI200T13 PO (15:11)
[2023-11-05] MEDS ORDERED: HYDR-4076 PO (15:11)
[2023-11-05] MEDS ORDERED: MYRBETRIQ PO (15:11)
[2023-11-05] MEDS ORDERED: FURO20TA4 PO (15:11)
[2023-11-05] MEDS ORDERED: LACT20SO4 PO (15:11)
[2023-11-05] MEDS ORDERED: BUME1TAB8 PO (15:11)
[2023-11-05 16:53] LABS: ADD URINE CULTURE YES; BACTERIA,URINE 3+ /HPF (None Seen); RBC,URINE 0-2 /HPF (0-2); SQUAMOUS EPITHELIAL CELL,UR None Seen /HPF (None Seen)
[2023-11-05] MEDS: LEVOFLOXACIN 750 MG /D5W 150ML PIGGYBACK IV ONE (17:05)
[2023-11-05 17:09] VITALS: BP 125/72; TEMP 98; O2SAT 97
== END 2023-11-05 17:10 | disposition left against medical advice (07) ==
LOC: ER 11:27
DX: N39.0 Urinary tract infection, site not specified (principal); D32.0 Benign neoplasm of cerebral meninges; R55 Syncope and collapse; G20.A1 Parkinson's disease without dyskinesia, without mention of fluctuations; F02.80 Dementia in other diseases classified elsewhere, unspecified severity, without behavioral disturbance, psychotic disturbance, mood disturbance, and anxiety; I11.0 Hypertensive heart disease with heart failure; I50.9 Heart failure, unspecified; I48.91 Unspecified atrial fibrillation; E78.5 Hyperlipidemia, unspecified; Z88.2 Allergy status to sulfonamides; Z88.5 Allergy status to narcotic agent; Z88.8 Allergy status to other drugs, medicaments and biological substances; Z79.899 Other long term (current) drug therapy
CPT/HCPCS: 36415; 70450-TC; 71045-TC; 80048-TC; 80076-TC; 81001; 82962-TC; 83880; 84443-TC; 84484-TC; 85025-TC; 85730-TC; 86850-TC; 87086-TC